=== PATIENT | male | born 1940 | race Caucasian/White ===

== ENCOUNTER → 2016-08-22 | Outpatient (CLI) | payer MEDICARE ==
[2016-08-22 15:21] LABS: Blood Urea Nitrogen 18 mg/dL (9-20); Non-African American GFR(MDRD) >60 (>60 ml/min/1.73 sqM)
== END ==
LOC: LABWHC1 14:50
PROVIDERS: ATTEND Psychiatry & Neurology Neurology
DX: R47.81 Slurred speech (principal)
CPT/HCPCS: 36415; 82565; 84520

== ENCOUNTER → 2016-08-29 | Outpatient (CLI) | payer MEDICARE ==
--- NOTE | 2016-08-29 16:01 | MR ---
EXAMINATION TYPE: MR brain wo/w con DATE OF EXAM: 08/29/2016 COMPARISON: NONE HISTORY: Brain tumor, Speech Problems CONTRAST: Performed utilizing 17 mL intravenous MultiHance gadolinium contrast. TECHNIQUE: Multiplanar, multiecho imaging on a 3.0 Ronda magnet is performed through the brain. Stud y is performed within 24 hours of arrival to the hospital. Fast technique was utilized due to patient 's ability to cooperate. The craniovertebral junction is normal. The pituitary is normal. Diffusion-weighted imaging is performed. No abnormal hyperintensity is present to suggest an acute i ntracranial infarct or acute ischemic change. Cerebellar pontine angles and internal auditory canals appear normal. There is mild scattered areas of increased signal within the deep white matter which is nonspecific b ut could be related to chronic white matter ischemic changes. Ventricles and sulci are appropriate for the patient age. No abnormal enhancement is evident. IMPRESSIONS: 1. Chronic appearing white matter ischemic changes. 2. No acute intracranial abnormality
== END | disposition home or self-care (01) ==
LOC: RADMRIMAIN 06:02
PROVIDERS: ATTEND Psychiatry & Neurology Neurology
DX: I67.82 Cerebral ischemia (principal)
CPT/HCPCS: 70553; A9577

== ENCOUNTER 2017-01-07 08:05 | Day surgery (SDC) | payer MEDICARE ==
[2017-01-03 11:16] VITALS: BMI 29.9
[~2017-01-07 08:05] MED LIST: LACTATED RINGERS 1,000 ML IV SCH
[2017-01-07 09:22] VITALS: TEMP 98
[2017-01-07] MEDS ORDERED: LIDOCAINE 1% 20 ML VIAL (10MG/ML) FOR IV START INTRADERMA ONE (09:32)
[2017-01-07] MEDS ORDERED: LIDOCAINE 1% INJ 10MG/ML (20 ML MDV) ONE (10:48)
[2017-01-07] MEDS ORDERED: fentaNYL (PF) 50 MCG/ML 2 ML AMP ONE (10:48)
[2017-01-07] MEDS ORDERED: MIDAZOLAM 2 MG/2 ML VIAL ONE (10:48)
[2017-01-07] MEDS ORDERED: PROPOFOL 10 MG/ML 20 ML VIAL IV ONE (10:48)
--- NOTE | 2017-01-07 11:16 | P.GSHP ---
History of Present Illness H&P Date: 01/07/17 Chief Complaint: GERD, rectal bleeding This is a 76-year-old male referred from Dr. Gama. Patient resents today for EGD and colonoscopy. He's had issues with GERD and rectal bleeding. Past Medical History Past Medical History: GERD/Reflux, Hyperlipidemia, Osteoarthritis (OA), Prostate Disorder Additional Past Medical History / Comment(s): DYSPHAGIA History of Any Multi-Drug Resistant Organisms: None Reported Past Surgical History: Cholecystectomy Additional Past Surgical History / Comment(s): REPAIR HIATAL HERNIA 05/2014 Past Anesthesia/Blood Transfusion Reactions: No Reported Reaction Smoking Status: Never smoker - Past Family History Mother Family Medical History: Memory Impairment Father Family Medical History: Myocardial Infarction ([place]) Additional Family Medical History / Comment(s): @ AGE 48 FROM [place] Medications and Allergies Home Medications Medication Instructions Recorded Confirmed Type Aspirin 81 mg PO DIRECTED PRN 05/04/14 01/03/17 History Donepezil [Aricept] 10 mg PO DAILY 05/04/14 01/07/17 History Esomeprazole Magnesium [NexIUM] 40 mg PO DAILY PRN 05/04/14 01/07/17 History Mclouth-3 Fatty Acids [Mclouth-3] 1,000 mg PO DAILY 05/04/14 01/03/17 History Pitavastatin Calcium [Livalo] 2 mg PO QAM 05/04/14 01/07/17 History Tamsulosin [Flomax] 0.4 mg PO HS 05/04/14 01/07/17 History traMADol HCL [Ultram] 50 mg PO DAILY 01/03/17 01/07/17 History ALPRAZolam [Xanax] 0.25 mg PO HS PRN 01/07/17 01/07/17 History Allergies Allergy/AdvReac Type Severity Reaction Status Date / Time amoxicillin trihydrate Allergy Unknown Verified 01/03/17 11:05 [From Prevpac] cephalexin monohydrate Allergy Unknown Verified 01/03/17 11:05 [From Keflex] clarithromycin [From Prevpac] Allergy Unknown Verified 01/03/17 11:05 hydrocodone Allergy Unknown Verified 01/03/17 11:05 lansoprazole [From Prevpac] Allergy Unknown Verified 01/03/17 11:05 memantine HCl [From Namenda] Allergy Unknown Verified 01/03/17 11:05 Penicillins Allergy Unknown Verified 01/03/17 11:05 atorvastatin calcium AdvReac SEVERE Verified 01/03/17 11:05 [From Lipitor] MUSCLE ACHES Surgical - Exam Vital Signs Temp Pulse Resp BP Pulse Ox 98.0 F 57 L 16 117/74 95 01/07/17 09:20 01/07/17 09:20 01/07/17 09:20 01/07/17 09:20 01/07/17 09:20 - General well developed, no distress - Eyes PERRL - ENT normal pinna - Neck no masses - Respiratory normal expansion - Cardiovascular Rhythm: regular - Abdomen Abdomen: soft, non tender Assessment and Plan Plan: GERD, rectal bleeding. We'll perform EGD and colonoscopy.
--- NOTE | 2017-01-07 11:37 | P.OP ---
Date of Procedure: 01/07/17 Preoperative Diagnosis: GERD Rectal bleeding Postoperative Diagnosis: Mild antral gastritis Diverticulosis Mild internal hemorrhoids Procedure(s) Performed: EGD Colonoscopy Anesthesia: MAC Surgeon: Adán Garg Pathology: other (Antrum) Condition: stable Disposition: PACU Description of Procedure: Patient's placed on the endoscopy table in the lateral position. He received IV sedation. The gastroscope placed oropharynx and passed in the esophagus and into the stomach. Scope was then placed through the pylorus. The first and second portion of the duodenum appeared normal. The scope was then brought back the antrum there is mild antral inflammation visualized. This area is biopsied. The scope was unretroflexed and remainder the stomach appeared normal. The patient a previous hiatal hernia repair. The fundoplication wrap appeared to be appropriate position. There is no evidence of any recurrent hiatal hernia. The GE junction was at 40 cm. The distal esophagus appeared normal. The proximal esophagus. Normal. Scope was withdrawn for patient. Next digital rectal exam was performed which revealed a few internal hemorrhoids. The possible colonoscope was then placed patient anus and passed throughout the entire colon. The ileocecal valve was visualized. The cecum, ascending and transverse colon appeared normal. In the descending sigmoid colon there is extensive diverticular changes.. The scope was then brought back the rectum and this appeared normal. The scope was then withdrawn for patient. >`
[2017-01-07 11:55] VITALS: BP 136/87; PULSE 59; RESP 18
== END 2017-01-07 12:57 | disposition home or self-care (01) ==
LOC: ORWHC2ENDO 08:05
PROVIDERS: ATTEND Surgery
DX: K29.50 Unspecified chronic gastritis without bleeding (principal); K21.9 Gastro-esophageal reflux disease without esophagitis; K62.5 Hemorrhage of anus and rectum; K57.30 Diverticulosis of large intestine without perforation or abscess without bleeding; K64.8 Other hemorrhoids; E78.5 Hyperlipidemia, unspecified; N40.0 Benign prostatic hyperplasia without lower urinary tract symptoms; Z79.82 Long term (current) use of aspirin; Z79.899 Other long term (current) drug therapy; Z88.1 Allergy status to other antibiotic agents; Z88.5 Allergy status to narcotic agent; Z88.0 Allergy status to penicillin; Z88.8 Allergy status to other drugs, medicaments and biological substances; Z98.890 Other specified postprocedural states; Z82.49 Family history of ischemic heart disease and other diseases of the circulatory system
CPT/HCPCS: 88305; 88342; 45378; 43239; J2250; J2001; J3010; J2704

== ENCOUNTER 2022-12-17 05:34 | Day surgery (SDC) | payer MEDICARE ==
[2022-12-17] MEDS ORDERED: ALPRAZolam 0.5 MG TAB PO PRN (05:53)
[2022-12-17] MEDS ORDERED: HEPARIN SODIUM,PORCINE (1 ML) 2,500 UNIT in SODIUM CHLORIDE 0.9% 250 ML IRRIGATION PRN (05:53)
[2022-12-17] MEDS ORDERED: HEPARIN SODIUM,PORCINE 10,000 UNIT in SODIUM CHLORIDE 0.9% 1,000 ML IRRIGATION PRN (05:53)
[2022-12-17] MEDS ORDERED: NITROGLYCERIN SL TABS 0.4 MG TAB SUBLINGUAL PRN (05:53)
[2022-12-17] MEDS ORDERED: ASPIRIN 325 MG TAB PO STA (05:53)
[2022-12-17] MEDS ORDERED: SODIUM CHLORIDE 0.9% 1,000 ML IV ONE (06:05)
[2022-12-17] MEDS ORDERED: ASPIRIN 81 MG ONE (06:14)
[2022-12-17] MEDS: SODIUM CHLORIDE 0.9% 1,000 ML in EMPTY BAG 1 BAG IV SCH ×2 (06:16→18:05)
[2022-12-17 06:45] LABS: Basophils % (A) 0 %; Eosinophils # (A) 0.3 k/uL (0-0.7); Eosinophils % (A) 4 %; HCT 48.7 % (39.0-53.0); HGB 15.4 gm/dL (13.0-17.5); Lymphocytes # (A) 1.5 k/uL (1.0-4.8); Lymphocytes % (A) 18 %; MCH 32.1 pg (25.0-35.0); MCHC 31.7 g/dL (31.0-37.0); MCV 101.4 fL (80.0-100.0); Macrocytosis Slight; Mean Platelet Volume 7.6; Monocytes # (A) 0.7 k/uL (0-1.0); Monocytes % (A) 9 %; Neutrophils # (A) 5.7 k/uL (1.3-7.7); Neutrophils % (A) 68 %; Platelet Count 245 k/uL (150-450); RDW 12.9 % (11.5-15.5); WBC 8.4 k/uL (3.8-10.6)
[2022-12-17 06:58] LABS: African American GFR (CKD) >90 (>60 ml/min/1.73 sqM); Anion Gap 8 mmol/L; Blood Urea Nitrogen 18 mg/dL (9-20); Calcium 9.3 mg/dL (8.4-10.2); Carbon Dioxide 23 mmol/L (22-30); Chloride 105 mmol/L (98-107); Glucose 106 mg/dL (74-99); Non-African American GFR(CKD) 85 (>60 ml/min/1.73 sqM); Sodium 136 mmol/L (137-145)
[2022-12-17 06:59] LABS: Potassium 4.9 mmol/L (3.5-5.1)
[2022-12-17] MEDS ORDERED: fentaNYL (PF) 50 MCG/ML 2 ML AMP ONE (07:35)
[2022-12-17] MEDS ORDERED: MIDAZOLAM 2 MG/2 ML VIAL IVP ONE (07:45)
[2022-12-17] MEDS ORDERED: fentaNYL (PF) 50 MCG/ML 2 ML AMP IVP ONE (07:45)
[2022-12-17] MEDS ORDERED: LIDOCAINE 1% INJ 10MG/ML (20 ML MDV) SQ ONE ×3 (07:45)
[2022-12-17] MEDS ORDERED: HEPARIN SODIUM 1,000 UN/ML (10ML VL) ONE (08:00)
[2022-12-17] MEDS ORDERED: HEPARIN SODIUM 1,000 UN/ML (10ML VL) IV ONE (08:09)
[2022-12-17] MEDS ORDERED: RX INFO: IV CONTRAST WAS GIVEN 1 EACH MISC MISCELLANE PRN (08:24)
[2022-12-17] MEDS ORDERED: IOPAMIDOL-370 200ML BTL INJ ONE (08:26)
[2022-12-17] MEDS ORDERED: IOPAMIDOL-370 100ML BTL INJ ONE (08:27)
--- NOTE | 2022-12-17 08:27 | P.PCN ---
Date of Procedure: 12/17/22 Operative Findings: CARDIAC CATHETERIZATION PERFORMING PHYSICIAN: Chad Valdes MD, RPVI PROCEDURE PERFORMED: 1. Selective right and left coronary angiogram 2. Left heart catheterization 3. MO into LAD angiogram and SVG to LCx angiogram 4. An aortic root angiogram 5. Selective right common femoral artery angiogram and ultrasound guided access of the right common femoral artery INDICATION: Chest discomfort and shortness of breath in this 82-year-old gentleman who has CAD and prior CABG at [facility]. He underwent myocardial perfusion imaging stress test that showed inferior ischemia COMPLICATION: None APPROACH: Right common femoral artery LEVEL OF SEDATION: Moderate with sedation in length of 37 minutes PROCEDURE DESCRIPTION: After obtaining an informed consent, the patient was brought to cardiac labor relations director. Local anesthesia was performed using lidocaine subcutaneously. The right common femoral artery was cannulated using Seldinger technique, the guidewire passed easily, following that we advanced a 6 Armenian sheath dilator assembly, the wire and dilator were removed and sheath was flushed. Selective right and left coronary angiogram using a 6-Armenian JR4 and JL catheters. Following that we did left heart catheterization using 6-Armenian pigtail catheter. The MO into LAD angiogram was performed using JR4 catheter and SVG to LCx a ngiogram was performed also using JR4 catheter. An aortic root angiogram was also peripheral The procedure was completed there was no complication. SELECTIVE CORONARY ANGIOGRAM: The right coronary artery: Large caliber vessel and a dominant vessel. The mid RCA has a tubular lesion appeared to be in the range of 60%. The RCA is calcified Left main: Has mild disease. Bifurcates into a LCx and LAD The left circumflex: Is occluded in the midportion. The left anterior descending artery: Has critical lesion in the proximal portion an intermediate disease in the proximal to midportion Coronary bypasses angiogram: The MO to LAD is patent The SVG to LCx is patent Aortic root angiogram: Was performed in the QATARI projection and using a power injection. There is no other bypasses beside the LCx bypass was identified HEMODYNAMICS: The LVEDP was 15 mmHg was no significant gradient across aortic valve CONCLUSION: 1. Severe two-vessel CAD involving the LCx and LAD 2. Patent MO into LAD and patent SVG to LCx 3. Intermediate to severe disease involving in a protected mid RCA POSTPROCEDURE MANAGEMENT: FFR of the RCA
[2022-12-17] MEDS ORDERED: SODIUM CHLORIDE 0.9% 1,000 ML IV SCH (08:30)
[2022-12-17] MEDS: ALPRAZolam 0.25 MG TAB PO PRN ×2 (09:13→21:28)
[2022-12-18] MEDS: SODIUM CHLORIDE 0.9% 1,000 ML in EMPTY BAG 1 BAG IV SCH ×2 (04:52→18:43)
[2022-12-18] MEDS ORDERED: HEPARIN SODIUM,PORCINE (1 ML) 2,500 UNIT in SODIUM CHLORIDE 0.9% 250 ML IRRIGATION PRN (07:00)
[2022-12-18] MEDS ORDERED: HEPARIN SODIUM,PORCINE 10,000 UNIT in SODIUM CHLORIDE 0.9% 1,000 ML IRRIGATION PRN (07:00)
[2022-12-18 07:55] VITALS: RESP 18
[2022-12-18] MEDS ORDERED: ASPIRIN 325 MG TAB PO STA (08:20)
[2022-12-18] MEDS ORDERED: ALPRAZolam 0.25 MG TAB PO PRN (08:40)
[2022-12-18] MEDS ORDERED: traMADol 50 MG TAB PO PRN (08:40)
[2022-12-18] MEDS ORDERED: PANTOPRAZOLE 40 MG TABLET PO PRN (08:40)
[2022-12-18 08:57] LABS: Basophils % (A) 1 %; Eosinophils # (A) 0.3 k/uL (0-0.7); Eosinophils % (A) 5 %; HCT 46.1 % (39.0-53.0); HGB 15.1 gm/dL (13.0-17.5); Lymphocytes # (A) 1.3 k/uL (1.0-4.8); Lymphocytes % (A) 20 %; MCH 32.7 pg (25.0-35.0); MCHC 32.8 g/dL (31.0-37.0); MCV 99.7 fL (80.0-100.0); Mean Platelet Volume 7.5; Monocytes # (A) 0.5 k/uL (0-1.0); Monocytes % (A) 8 %; Neutrophils # (A) 4.3 k/uL (1.3-7.7); Neutrophils % (A) 65 %; Platelet Count 242 k/uL (150-450); RBC 4.63 m/uL (4.30-5.90); RDW 13.3 % (11.5-15.5); WBC 6.6 k/uL (3.8-10.6)
[2022-12-18] MEDS ORDERED: NON FORMULARY DRUG (Omega-3 Fatty Acids [Omega-3] 1,000 MG Capsule) PO SCH (09:00)
[2022-12-18] MEDS ORDERED: ASPIRIN 81 MG PO SCH (09:00)
[2022-12-18] MEDS ORDERED: MULTIVITAMINS, THERA 1 EACH TAB PO SCH (09:00)
[2022-12-18] MEDS ORDERED: GINKGO BILOBA LEAF EXTRACT 30 MG PO SCH (09:00)
[2022-12-18] MEDS: METOPROLOL TARTRATE 12.5 MG TAB PO SCH ×2 (09:06→20:16)
[2022-12-18 09:09] LABS: African American GFR (CKD) >90 (>60 ml/min/1.73 sqM); Anion Gap 4 mmol/L; Blood Urea Nitrogen 13 mg/dL (9-20); Carbon Dioxide 26 mmol/L (22-30); Chloride 108 mmol/L (98-107); Glucose 101 mg/dL (74-99); Non-African American GFR(CKD) 87 (>60 ml/min/1.73 sqM); Potassium 4.7 mmol/L (3.5-5.1); Sodium 138 mmol/L (137-145)
[2022-12-18] MEDS ORDERED: VERAPAMIL 2.5 MG/ML 2 ML AMP ONE (17:03)
[2022-12-18] MEDS ORDERED: HEPARIN SODIUM 1,000 UN/ML (10ML VL) ONE (17:03)
[2022-12-18] MEDS ORDERED: SODIUM CHLORIDE 0.9% 1,000 ML IV ONE (17:20)
[2022-12-18] MEDS ORDERED: MIDAZOLAM 2 MG/2 ML VIAL IVP ONE (17:50)
[2022-12-18] MEDS ORDERED: LIDOCAINE 1% INJ 10MG/ML (5 ML VIAL-PF) SQ ONE (17:52)
[2022-12-18] MEDS ORDERED: VERAPAMIL SYRINGE (5 MG/10 ML) IVP ONE (17:54)
[2022-12-18] MEDS ORDERED: HEPARIN SODIUM 1,000 UN/ML (10ML VL) IVP ONE (17:55)
[2022-12-18] MEDS ORDERED: IOPAMIDOL-370 100ML BTL INJ ONE (18:03)
[2022-12-18] MEDS ORDERED: RX INFO: IV CONTRAST WAS GIVEN 1 EACH MISC MISCELLANE PRN (18:04)
--- NOTE | 2022-12-18 18:09 | P.PCN ---
Date of Procedure: 12/18/22 Operative Findings: Cardiac cath report Performing physician Chad Valdes M.D. Procedure performed 1. FFR of the RCA 2. Ultrasound-guided access of the right radial artery Indication This is an 82-year-old gentleman who underwent a heart catheterization yesterday and he was found to have intermediate disease involving the right coronary artery disease was brought today to undergo an FFR Approach Right radial artery Complication None Level of sedation Moderate with sedation length 9 minutes Procedure description After obtaining an informed consent the patient was brought to the cardiac cathodic protection technician. The right radial artery was cannulated using Rusty rupture technique under ultrasound guidance and the micropuncture wire passed easily then I placed a 6-Surinamese sheath at the right radial artery. I gave the patient 2 mg of verapamil and arterial and 5000 units of heparin intravenous. After zeroing the Doppler wire and equal lysing between the Doppler wire and guiding catheter which was JR4 guiding catheter and after engaging the right coronary artery and wiring the right coronary artery with a Doppler wire we did iFR and that came in to be nonischemic 0.95. The procedure was completed was no complication Postprocedure management Continue aggressive cholesterol control and risk factors modification
[2022-12-18] MEDS ORDERED: SODIUM CHLORIDE 0.9% 1,000 ML IV SCH (18:15)
[2022-12-18 18:35] VITALS: TEMP 98.2
[2022-12-18] MEDS ORDERED: TAMSULOSIN 0.4 MG CAP.ER.24H PO SCH (21:00)
[2022-12-19 00:04] VITALS: BP 129/73; PULSE 61
== END 2022-12-18 22:55 | disposition home or self-care (01) ==
LOC: CATHCVL 05:34 → 6NMEDSUR 08:21 → CATHCVL 12-18 22:55
PROVIDERS: ATTEND Internal Medicine Interventional Cardiology
DX: I25.110 Atherosclerotic heart disease of native coronary artery with unstable angina pectoris (principal); I25.84 Coronary atherosclerosis due to calcified coronary lesion; I10 Essential (primary) hypertension; E78.00 Pure hypercholesterolemia, unspecified; E78.5 Hyperlipidemia, unspecified; Z95.1 Presence of aortocoronary bypass graft; F03.A0 Unspecified dementia, mild, without behavioral disturbance, psychotic disturbance, mood disturbance, and anxiety; Z88.8 Allergy status to other drugs, medicaments and biological substances; Z88.0 Allergy status to penicillin; G47.30 Sleep apnea, unspecified; Z79.82 Long term (current) use of aspirin; Z79.899 Other long term (current) drug therapy
CPT/HCPCS: 93454; 93459; 93567; 93799; 80048 ×2; 85025 ×2; C1769 ×8; C1760; C1887 ×2; C1894; J2250 ×2; J2001 ×2; J3010; J1644 ×2; Q9967 ×3

== ENCOUNTER → 2024-01-07 | Outpatient (CLI) | payer MEDICARE ==
[2024-01-07 15:23] LABS: African American GFR (CKD) >90 (>60 ml/min/1.73 sqM); Blood Urea Nitrogen 17 mg/dL (9-20); Non-African American GFR(CKD) 80 (>60 ml/min/1.73 sqM)
--- NOTE | 2024-01-08 19:07 | CT ---
EXAMINATION TYPE: CT chest w con CT DLP: 521 mGycm, Automated exposure control for dose reduction was used. DATE OF EXAM: 01/07/2024 4:10 PM COMPARISON: None available. CLINICAL INDICATION:Male, 83 years old with history of R91.1 SOLITARY PULMONARY NODULE; PHH, lung nod ule TECHNIQUE: Multiple axial images were obtained through the chest following the administration of 100 cc of Isovue 300. . Coronal and sagittal reformats reviewed. FINDINGS: LUNGS/ PLEURA: No pleural effusion, pneumothorax, or focal consolidation. Few scattered pulmonary no dules including a left lower lobe 4 mm solid nodule (series 4 image, 25), right middle lobe 5 mm pulm onary nodule (series 4, image 36), right lower lobe 5 mm pulmonary nodule (series 4, image 32), right midlung 3 mm pulmonary nodule (series 4, image 30), and a left upper lobe 5 mm pulmonary nodule (ser ies 4, image 18). AIRWAY: Patent and unremarkable.. HEART: Mildly prominent. No pericardial effusion. Post CABG changes. Mitral valve repair. MEDIASTINUM: No evidence of adenopathy. VASCULATURE: No aortic aneurysm. MUSCULOSKELETAL: No acute osseous abnormalities. Median sternotomy wires. Anterior spine hypertrophic changes. SOFT TISSUES/LYMPH NODES: Unremarkable. LOWER NECK: No significant findings. UPPER ABDOMEN: Post cholecystectomy changes. Mild atrophy of the pancreas. Post surgical changes at t he GE junction from hernia repair. Right upper pole renal cortical 1.3 cm cyst. Right upper pole canelo l nonobstructive 5 mm calculus. Calcified punctate granuloma within the spleen. Distal colonic divert iculosis. IMPRESSION: 1. Few pulmonary nodules measuring 5 mm or less. According to Fleischner criteria, in a low-risk renu ent, no follow-up is recommended. In a high-risk patient consider optional CT chest at 12 months. 2. Nonobstructive right renal calculus. [facility], , 01/08/2024 7:05 PM
== END | disposition home or self-care (01) ==
LOC: RADCTMAIN 14:18
PROVIDERS: ATTEND Family Medicine
DX: R91.1 Solitary pulmonary nodule
CPT/HCPCS: 36415; 71260; 82565; 84520

== ENCOUNTER → 2024-01-15 | Day surgery (SDC) | payer MEDICARE ==
[~2024-01-15] MED LIST changes: -LACTATED RINGERS 1,000 ML IV SCH; +LIDOCAINE 2% (PF) 20 MG/ML 5 ML VIAL ONE; +PROPOFOL 10 MG/ML 20 ML VIAL IV ONE
[2024-01-15] MEDS: IV FLUID CONTINUATION 1,000 ML IV ONE (06:54)
[2024-01-15 07:04] VITALS: TEMP 97.7
[2024-01-15] MEDS: LACTATED RINGERS 1,000 ML IV SCH (07:04)
--- NOTE | 2024-01-15 07:48 | P.GSHP ---
History of Present Illness H&P Date: 01/15/24 Chief Complaint: GI bleed This is a 83-year-old male whose had issues GI bleed. Patient is today for EGD and colonoscopy. Past Medical History Past Medical History: Coronary Artery Disease (CAD), GERD/Reflux, Hyperlipidemia, Hypertension, Memory Impairment, Osteoarthritis (OA), Prostate Disorder, Sleep Apnea/CPAP/BIPAP Additional Past Medical History / Comment(s): BPH, Spot on lung- follow up MRI last week, leaks urine at times. History of Any Multi-Drug Resistant Organisms: None Reported Past Surgical History: Cholecystectomy, Coronary Bypass/CABG, Heart Catheterization, Hernia Repair Additional Past Surgical History / Comment(s): 2019 CABG and mitral valve repair/then went [facility] and had clip placed on mitral valve, [facility], REPAIR HIATAL HERNIA 05/2014. colonscopy Past Anesthesia/Blood Transfusion Reactions: No Reported Reaction Smoking Status: Never smoker - Past Family History Mother Family Medical History: Memory Impairment Father Family Medical History: Myocardial Infarction ([place]) Additional Family Medical History / Comment(s): @ AGE 48 FROM [place] Medications and Allergies Home Medications Medication Instructions Recorded Confirmed Type Aspirin 81 mg PO QAM 05/04/14 01/15/24 History Plainview-3 Fatty Acids [Plainview-3] 1,000 mg PO QAM 05/04/14 01/15/24 History Tamsulosin [Flomax] 0.4 mg PO DAILY 05/04/14 01/15/24 History traMADol HCL [Ultram] 50 mg PO DAILY PRN 01/03/17 01/15/24 History ALPRAZolam [Xanax] 0.25 mg PO DIRECTED PRN 01/07/17 01/15/24 History Metoprolol Tartrate 12.5 mg PO DAILY 12/12/22 01/15/24 History Multivitamins, Thera [Multivitamin 1 tab PO QAM 12/12/22 01/15/24 History (formulary)] Omeprazole [PriLOSEC] 40 mg PO QAM PRN 12/12/22 01/15/24 History Ezetimibe [Zetia] 10 mg PO DAILY 01/13/24 01/15/24 History Naproxen Sodium [Aleve] 220 mg PO DIRECTED PRN 01/13/24 01/15/24 History Allergies Allergy/AdvReac Type Severity Reaction Status Date / Time amoxicillin trihydrate Allergy Unknown Verified 01/15/24 06:57 [From Prevpac] cephalexin monohydrate Allergy Unknown Verified 01/15/24 06:57 [From Keflex] clarithromycin [From Prevpac] Allergy Unknown Verified 01/15/24 06:57 hydrocodone Allergy Unknown Verified 01/15/24 06:57 lansoprazole [From Prevpac] Allergy Unknown Verified 01/15/24 06:57 memantine HCl [From Namenda] Allergy stutter Verified 01/15/24 06:57 Penicillins Allergy Unknown Verified 01/15/24 06:57 atorvastatin calcium AdvReac SEVERE Verified 01/15/24 06:57 [From Lipitor] MUSCLE ACHES Surgical - Exam Vital Signs Temp Pulse Resp BP Pulse Ox 97.7 F 83 18 139/74 95 01/15/24 07:03 01/15/24 07:03 01/15/24 07:03 01/15/24 07:03 01/15/24 07:03 - General well developed, well nourished, no distress - Eyes PERRL - ENT normal pinna - Neck no masses - Respiratory normal expansion - Cardiovascular Rhythm: regular - Abdomen Abdomen: soft, non tender Assessment and Plan Assessment: GI bleed. Perform EGD and colonoscopy.
--- NOTE | 2024-01-15 08:10 | P.OP ---
Date of Procedure: 01/15/24 Preoperative Diagnosis: GI bleed Postoperative Diagnosis: Antral gastritis Diverticulosis Procedure(s) Performed: EGD Colonoscopy Anesthesia: MAC Surgeon: Adán Garg Pathology: other (Antral gastritis) Condition: stable Disposition: PACU Description of Procedure: Placed on the endoscopy table in the lateral position. He received IV sedation. The gas was placed oropharynx passed in the esophagus and the stomach. Scope was in place through the pylorus. The first and second portion of the duodenum appeared normal. The scope was then brought back to the antrum this appeared mildly Flaim. A biopsy was performed. Scope was then retroflexed and remainder of the stomach appeared normal. The GE junction was at 40 cm. There was no significant hiatal hernia. The distal esophagus appeared normal. The proximal esophagus appeared normal. Scope withdrawn from the patient. The patient was placed on the left lateral position. Digital rectal exam was performed. This revealed no abnormalities. Flexible colonoscope was then placed patient anus and passed throughout the entire colon. The ileocecal valve was visualized. The cecum, ascending and transverse colon appeared normal. The descending and sigmoid colon extensive diverticular changes. Scope was brought back to the rectum this appeared normal. Scope withdrawn for the patient. This. There was no evidence of any GI bleed. Presumed patient may have had bleeding from diverticulosis.
[2024-01-15 08:31] VITALS: BP 118/76; PULSE 69; RESP 20
== END ==
LOC: ORWHC2ENDO 06:27
PROVIDERS: ATTEND Surgery
CPT/HCPCS: 43239; 45378; 88305